=== PATIENT | female | born 1985 | race Asian ===

== ENCOUNTER 2022-06-15 08:29 | Outpatient (CLI) | payer OTHER, SELFPAY ==
[2022-06-15 08:58] LABS: Clue Cells No Clue Cells Seen (None Seen); Trichomonas No Trichomonas Seen (None Seen); Yeast No Yeast Seen (None Seen)
== END 2022-06-15 08:30 | disposition home or self-care (01) ==
PROVIDERS: Visit Provider Registered Nurse
DX: N93.9 Abnormal uterine and vaginal bleeding, unspecified (principal)
CPT/HCPCS: 87210; 87491; 87591

== ENCOUNTER 2022-08-17 09:41 | Day surgery (SDC) | payer OTHER, SELFPAY ==
[2022-08-17] VITALS (13 sets, daily range): BP systolic 110–137; BP diastolic 66–92; PULSE 75–92; RESP 10–16; TEMP 36.3–36.8; O2SAT 98–100; BMI 26.5
[2022-08-17] MEDS: LACTATED RINGERS 1000 ML 1,000 ML 100 ML IV (09:45)
[2022-08-17 10:00] LABS: Ur HCG Qualitative* Negative (Negative)
--- NOTE | 2022-08-17 10:05 | W.ANESCHARGE ---
Anesthesia Charges Start Date/Time Anesthesia Start Date: 08/17/22 Anesthesia Start Time: 10:52 Stop Date/Time Anesthesia Stop Date: 08/17/22 Anesthesia Stop Time: 11:23
[2022-08-17] MEDS: SODIUM CHLORIDE 0.9 % (FLUSH) 10 ML SYRINGE IVF (10:08)
--- NOTE | 2022-08-17 11:19 | W.PM.ENTPROC ---
Procedure Note Date of procedure: 08/17/22 Procedure: Preoperative diagnosis is right cryptic tonsillitis, status post previous left Bucky tonsillectomy Postoperative diagnosis same Procedure right tonsillectomy Under general endotracheal anesthesia patient was prepped and draped usual fashion. The McIvor mouth gag was inserted the tongue retracted forward. The right tonsil was removed with a combination of needlepoint and Coblation cautery. There was minimal to no bleeding. The patient procedure well was taken recovery in satisfactory condition. Blood loss was less than 10 mL. Surgeon: Mac Simpson MD
--- NOTE | 2022-08-17 11:24 | W.ANESCHARGE ---
Anesthesia Charges Start Date/Time Anesthesia Start Date: 08/17/22 Anesthesia Start Time: 10:52 Stop Date/Time Anesthesia Stop Date: 08/17/22 Anesthesia Stop Time: 11:23
[2022-08-17] MEDS: OXYCODONE 1 MG/ML ORAL SOLN 5 MG PO (12:09)
[2022-08-17] MEDS: ACETAMINOPHEN 160 MG/5 ML CUP 320 MG PO (12:09)
[2022-08-17] MEDS: IBUPROFEN 100 MG/5 ML SUSP 200 MG PO (12:09)
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
== END 2022-08-17 13:16 | disposition home or self-care (01) ==
LOC: OR 09:41
PROVIDERS: Visit Provider Otolaryngology
PROC: (CPT 42826; principal; 2022-08-17 11:00)
DX: J35.8 Other chronic diseases of tonsils and adenoids (principal)
CPT/HCPCS: 42826; 170; 81025; 88304; A9270; J0330; J1100; J2250; J2405; J2704; J3010; J7120

== ENCOUNTER 2022-08-24 22:37 | Day surgery (SDC) | payer OTHER, SELFPAY ==
[2022-08-24 22:47] VITALS: BP 133/88; PULSE 90; RESP 16; TEMP 36.6; O2SAT 100; BMI 26.0
[2022-08-24 23:04] LABS: Basophils Absolute Auto 0.02 K/uL (0.00-0.30); Basophils Percent Auto 0.3 % (0.0-3.0); Eosinophils Absolute Auto 0.23 K/uL (0.00-0.50); Eosinophils Percent Auto 3.3 % (0.0-7.0); Hematocrit 36.8 % (33.0-51.0); Hemoglobin* 11.4 gm/dL (12.0-16.0); Immature Granulocytes Abs Auto 0.01 K/uL (0.00-0.30); Immature Granulocytes Pct Auto 0.1 %; Lymphocytes Absolute Auto 2.82 K/uL (0.90-2.90); Lymphocytes Percent Auto 40.1 % (20-44); Mean Corpuscular HGB Conc 31 gm/dL (32-36); Mean Corpuscular Hemoglobin 22 pg (26-34); Mean Corpuscular Volume 71 fL (80-100); Monocytes Percent Auto 7.2 % (0.0-11.0); Neutrophils Absolute Auto 3.45 K/uL (1.7-7.0); Platelet Count* 330 K/uL (140-440); RDW Coefficient of Variation % 14.2 % (11.5-15.5); White Blood Count* 7.04 K/uL (4.50-11.00)
[2022-08-24 23:06] LABS: Slide Review Reflex No
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
[2022-08-24] MEDS: LACTATED RINGERS 1000 ML 1,000 ML IV (23:14)
--- NOTE | 2022-08-24 23:15 | ED.NURSE ---
OR crew at bedside to take over care to SDS
[2022-08-24 23:17] LABS: Chloride* 104 mmol/L (96-114); Potassium* 3.7 mmol/L (3.6-5.1); Sodium* 139 mmol/L (135-149)
[2022-08-24 23:20] LABS: Carbon Dioxide* 24 mmol/L (20-32); Creatinine* 0.7 mg/dL (0.5-1.5); Est. Creatinine Clearance* 87.03; Estimated Glomerular Filt Rate 114 ml/min
[2022-08-24 23:21] LABS: Blood Urea Nitrogen* 13 mg/dL (5-24); Glucose* 120 mg/dL (60-115)
--- NOTE | 2022-08-24 23:38 | P.ENTPROC_ITS ---
Procedure Note Date of procedure: 08/24/22 Procedure: Diagnosis right post tonsillectomy bleeding Postoperative diagnosis same Procedure cautery control right post tonsillectomy bleeding Under general tracheal anesthesia patient was prepped and draped in usual fashion. The McIvor mouth gag was inserted the tongue retracted forward. A clot was noted the right inferior tonsil fossa this was removed brisk bleeding ensued from a vessel near junction of tongue base and tonsillar fossa. This was easily controlled with Coblation cautery. An NG tube was passed 18 Bulgarian was passed into the stomach and anesthesia suction turned on low was used to remove gastric contents. There was only a small amount of blood present. The tonsillar fossa was reinspected no further bleeding was noted. The patient was extubated in the operating room taken recovery in satisfactory condition. Blood loss during procedure was less than 10 mL. There were no complications. Surgeon: Mac Simpson MD
[2022-08-24 23:44] VITALS: BP 136/92; PULSE 110; RESP 12; TEMP 36.4; O2SAT 99
[2022-08-24] MEDS: LACTATED RINGERS 1000 ML 1,000 ML 100 ML IV (23:44)
--- NOTE | 2022-08-24 23:48 | W.ANESCHARGE ---
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
[2022-08-24 23:50] VITALS: BP 122/86; PULSE 91; RESP 16; O2SAT 100
[2022-08-24 23:55] VITALS: BP 126/78; PULSE 87; RESP 16; O2SAT 99
[2022-08-25] VITALS (11 sets, daily range): BP systolic 84–135; BP diastolic 54–85; PULSE 78–89; RESP 15–16; TEMP 36.1; O2SAT 98
--- NOTE | 2022-08-25 00:14 | SUR.PHASEI ---
per elementary vocal music teacher, patient meets pacu discharge criteria. transferring to [facility]
[2022-08-25] MEDS: OXYCODONE 1 MG/ML ORAL SOLN 7 MG PO (01:38)
[2022-08-25] MEDS: IBUPROFEN 100 MG/5 ML SUSP 200 MG PO (01:39)
--- NOTE | 2022-08-25 05:15 | PC.NURSE ---
[id number] Shift Summary? 258 K.P 37 SDS- Post tonsillar bleed? Pt?s vitals stable and soft BPs at baseline. Drowsy upon arrival. Bedside handoff reported giving Benadryl. 5/10 Pain to pt?s throat, teeth, and jaw. Given 7mg liquid oxy and 200mg liquid ibuprofen at 0145. Pt has these meds at home. Declined icepack stated, ?I break out in hives when I am cold?. Pain with swallowing but no aspiration. Voided in BR, SBA x2. Room air. Airway swollen but pink with no discoloration. Brusing to L side of tongue.?No nausea or vomiting. Only tolerated liquids. Pt had no questions regarding DC paperwork. picked her up at [place] to [place] home.?
== END 2022-08-25 05:15 | disposition home or self-care (01) ==
LOC: ED 23:13 → SS 23:15 → MEDSURG 08-25 00:55
PROVIDERS: Emergency Provider Internal Medicine; PCP Physician Assistant Medical; Visit Provider Otolaryngology
PROC: 0C9PXZZ Drainage of Tonsils, External Approach (ICD-10-PCS; CPT 42700; principal; 2022-08-24 23:45)
DX: J95.830 Postprocedural hemorrhage of a respiratory system organ or structure following a respiratory system procedure (principal)
CPT/HCPCS: 42962; 00170; 36415; 80048; 85025; 99140; 99283; A9270; J0330; J1100; J1200; J2405; J2704; J3010; J7120

== ENCOUNTER 2023-03-06 10:37 | Outpatient (CLI) | payer OTHER, SELFPAY | END 2023-03-06 10:38 | disposition home or self-care (01) | LOC: NFLDREF 10:59 | PROVIDERS: PCP Physician Assistant Medical; Visit Provider Registered Nurse | DX: Z01.419 Encounter for gynecological examination (general) (routine) without abnormal findings (principal); Z13.6 Encounter for screening for cardiovascular disorders | CPT/HCPCS: 80061 ==

== ENCOUNTER 2023-03-21 09:31 | Outpatient (CLI) | payer OTHER, SELFPAY ==
--- NOTE | 2023-03-21 09:45 | CRLHL7_ITS ---
For Patients: As a result of the Century Cures Act, medical imaging exams and procedure reports are released immediately into your electronic medical record. You may view this report before your referring provider. If you have questions, please contact your health care provider. INDICATION: Right lower quadrant pelvic pain. TECHNIQUE: Ultrasound pelvis transabdominal and transvaginal for better assessment or to better visualize the endometrium. Real-time sonographic images with spectral and color Doppler imaging of the ovaries were obtained. COMPARISON: None. FINDINGS: Uterus: 7 x 5 x 4 cm. Normal echotexture of the myometrium. No masses. Endometrium: Transvaginal imaging was performed to better evaluate the endometrium. Endometrial thickness measures 11 mm. No sign of endometrial mass or fluid. Right ovary 3 x 2 x 2 cm. Left ovary 3 x 2 x 1 cm. Mildly complex cystic lesion in the right ovary measures 1.5 cm. No other lesions. Normal arterial and venous blood flow is demonstrated in both ovaries. Cul-de-sac: No significant free fluid. IMPRESSION: Small 1.5 cm collapsed follicle or small cyst in the right ovary may be hemorrhagic. No free fluid to suggest cystic rupture. No sign of torsion. Remainder of exam is unremarkable. Dictated by Rashaad Graves MD @ 03/22/2023 11:13:51 AM (Electronically Signed)
== END 2023-03-21 09:32 | disposition home or self-care (01) ==
LOC: US 09:32
PROVIDERS: PCP Physician Assistant Medical; Visit Provider Registered Nurse
DX: R10.2 Pelvic and perineal pain (principal); N83.201 Unspecified ovarian cyst, right side
CPT/HCPCS: 76830; 76856; 93976

== ENCOUNTER 2024-03-02 10:15 | Outpatient (RCR) | payer OTHER, SELFPAY | END 2024-03-02 12:07 | disposition home or self-care (01) | PROVIDERS: PCP Physician Assistant Medical; Visit Provider Physician Assistant Medical | DX: M77.01 Medial epicondylitis, right elbow (principal); Z51.89 Encounter for other specified aftercare | CPT/HCPCS: 97035; 97110; 97140; 97166; X5282 ==

== ENCOUNTER 2025-04-13 19:52 | Emergency (ER) | payer OTHER, SELFPAY ==
--- OUTSIDE RECORDS SUMMARY | 2017-09-09 05:34 | XMS_ITS | Continuity of Care Document ---
Author Organization [facility] Address [address] [address] [place] [address] Phone Care Team Providers Care Canvas Goods Maker Name Role Phone Link Garth LOMBARDO Unavailable Unavailable Allergies, Adverse Reactions, Alerts Substance Reaction Status Criticality No Known Allergies Active No Inform ation Medications Medication Instructions Dosage Effective Dates (start - stop) Status Comments desipramine 10 mg tablet take 1 - 5 tablet by oral route every day at bedtime 10 MG - Active TRAMADOL HCL (unknown strength) take 1 - 2 tablet by oral route every bedtime as needed Not Available - Active desipramine 50 mg tablet take 1 tablet by oral route every day 50 MG - Active Zyrtec 10 mg tablet take 1 tablet by oral route every day - Active VITAMINS (unknown strength) take one tablet orally everyday Not Available - Active pantoprazole 20 mg tablet,delayed release take 1 Tablet by oral route every day as needed 20 MG - Active ondansetron 4 mg disintegrating tablet take 1 - 2 tablet by ORAL route every [address] on top of the tongue where it will dissolve, then swallow 4 MG - Active Procedures Procedure Date Offic/outpt E&m Estab Low-mod 8 Offic/outpt E&m Estab Low-mod 8 Routine Serum Collection Amylase Lipase Offic Cons New/estab Mod Routine Serum Collection Advance Directives Directive Yes / No Effective Date File Name No Information Encounters Encounter Description Practice Location Reason(s) For Visit Diagnoses Date Provider Providers Copied on Encounter [facility], [address] [address], [place], [place], [id number], tel:[phone] [facility] No Information Link MD Liang. [address] [facility], [facility] [address], [place], [place], [id number], . tel:[phone] Offic/outpt E&m Estab Low-mod [facility], [address] [address], [place], [place], [id number], tel:[phone] [facility] GI Symptoms or Concerns (chief complaint) Functional abdominal pain syndrome Link MD Liang. [address] [facility], [facility] [address], [place], [id number], . tel:[phone] Referring Provider: Referral Self, USE FOR SELF REFERRALS. Offic/outpt E&m Estab Low-mod [facility], [address] [address], [place], [place], [id number], tel:[phone] [facility] GI Symptoms or Concerns (chief complaint) Epigastric pain Link MD Liang. [address] [facility], [facility] [address], [place], [place], [id number], . tel:[phone] Referring Provider: Referral Self, USE FOR SELF REFERRALS. Offic Cons New/estab Mod [facility], [address] [address], [place], [place], [id number], tel:[phone] [facility] GI Symptoms or Concerns (chief complaint) Epigastric painConstipati on, unspecified constipation type Jacky Iglesias. [address] [facility], [facility] [address], [place], [place], [id number], . tel:[phone] Family History Family Member Type Diagnosis Age At Onset Father Problem (finding) diabetes mellitus type 2 Son Problem (finding) Alive and well Mother Problem (finding) diabetes mellitus type 2 Father Problem (finding) alcoholism Mother Problem (finding) Thyroid disorder Sister Problem (finding) GERD Payers Payer name Insurance type Covered libertarian ID Authoriza tion(s) No Information Social History Type Description Quantity Date Captured Comments Alcohol Use Details Unknown Caffeine Use Details Unknown Tobacco Use Status Smoking Status No Information Sex Female Chief Complaint And Reason For Visit No Information Reason For Referral Reason For Referral No Information Plan Of Treatment Date Type Action Status Referral Ordered: Gastric Emptying Study (4 Hours) Appointment date/timeframe: 09/06/2017 ordered History Of Present Illness Encounter Date Complaint History Of e nt Illness GI Symptoms or Concerns Martha machuca ents today for a scheduled followup. She was first seen by myself on July 29 for recurrent epigastric pain. She had significant worsening, and presented to the emergency room on July 31 and also August 10. She states that she has episodes of epigastric pain after eating. Often it is worse with fatty, greasy, or spicy foods, however, she can also have symptoms after bland meals. She notes frequent belching. She also has episodes of nausea and vomiting at times. This occurs with the pain, and she usually will vomit up recently ingested food.She has tried to decrease or cut out processed foods, and she has also eliminated eggs from her diet, however, has not noticed an improvement in her symptoms.On August 05, she was started on desipramine 10 mg every evening. She has gradually increased this to 30 mg every evening. GI Symptoms or Concerns Martha ents today for evaluation of abdominal pain. She has a longstanding history of episodic abdominal pain. She states that she will get intermittent episodes of epigastric pain for three to six months, and then the pain will seem to go away for a year or two. Her most recent bout began about two weeks ago. She describes epigastric pain, which begins as a dull ache, and then often progresses to severe pain. It lasts five to seven hours and seems to improve on its own. Sometimes, this seems to be triggered by eating a meal, however, she has not found any specific foods, which cause it. She denies any nausea or vomiting. She has a longstanding history of chronic heartburn, which she takes pantoprazole for. She states that on this medication her symptoms are well controlled. She denies any dysphagia. She notes that her appetite is poor, but she denies any fevers. She is eight weeks , and has been appropriately losing weight. She denies any diarrhea, constipation, o [id number] GI Symptoms or Concerns Ms. Marek abbott is a very pleasant 29 yo female presenting with 6 year history of episodic epigastric pain. She reports the pain is a severe, 8 or 9/10 pain that is a sharp cramp. Eating brings on the pain and nothing but time alleviates the pain. She has tried Levsin, PPI's, nortriptylene and narcotics in the past for the pain with no improvement. She does note that gluten products, bananas and avocados cause the pain and non-bloody emesis after eating. The episodes come in groups where she will have a month with episodes 3-4 times per week and then feel well for multiple months with no pain. She denies significant gas and bloating. She does have some mild constipation on a daily fiber supplement. She will have a stool every few days, very occassional diarrhea. During the intial work up of the pain, it was thought to be gall stone related and she underwent cholecystectomy. The pain continued and she underwent EUS in 2009. More recently, she has had an EGD/colonoscopy within the last month and reports it was normal. Pt reports biopsies from EGD showed reactive gastropathy and negative for celiac. Per pt, Ct ab/p showed right ovarian cyst, otherwise normal. She also possibly had small bowel follow through and US to evaluate celiac artery. All of this was done through [facility]. She is 4 months post- with depression/anxiety symptoms and started Zoloft. She reports an uneventful with vaginal delivery with minor tears. She has decreased sleep and has not been able to exercise regularly with the infant. She previously practiced yoga. She is down to about 4 lbs less than pre- weight of 125lbs. 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 She does drink sodas daily, drinks through a straw and chews gum. Functional Status Date Functional Assessmen t No Information Instructions Date Instruction Additional Infor oracio Increase desipramine to 50 mg every evening. Related to Functional abdominal pain syndrome -Increase fiber supp lement to ensure daily, soft stool. Consider adding daily Miralax if needed. Can also consider Linzess-Obtain record of previous work up-Check thyroid panel-Consider stopping gas producing activities such as gum chewing, drinking with straw, and drinking carbonated beverages-Follow up in 2 months Related to Constipation, unspecified constipation type Assessments Type Assessment Date No Information Patient Care Teams Name Effective Dates (start - stop) Status Members No Information
--- OUTSIDE RECORDS SUMMARY | 2025-04-13 19:54 | XMS_ITS | Clinical Summary ---
Author Organization [facility] Address [address] [place] [id number] Care Team Providers Care [employer] Name Role Phone José Miguel Gonzales MD Primary Care Provider No Ref-Primary, Physician Unavailable [phone] Allergies No known active allergies Medications MedicationSigDispense QuantityRefillsLast FilledStart DateEnd DateStatus Omeprazole Magnesium (PRILOSEC OTC PO) Take by mouth.Active Ibuprofen (ADVIL PO) Take by mouth.Active oxyCODONE-acetaminophen (PERCOCET) 5-325 MG per tablet Take 1-2 tablets by mouth every 6 hours as needed for pain. 20 tablet ctive ondansetron (ZOFRAN ODT) 4 MG disintegrating tablet Take 1-2 tablets by mouth every 6 hours as needed for nausea for 3 days. 20 tablet ctive promethazine (PHENERGAN) 25 MG tablet Take 1 tablet by mouth every 6 hours as needed for nausea. 20 tablet ctive Active Problems ProblemNoted DateDiagnosed DateCARDIOVASCULAR SCREENING; LDL GOAL LESS THAN 160 01/23/2011Genital warts12/27/2010SCUS on Pap smear12/27/2010 Overview (02/14/2011): 12/27/10: ASCUS, + HPV 58. Plan colp. 02/09/11: [facility] - with signs of koilocytosis, not formally called mild dysplasia or PAULA 1. Pt is moving to [place] this weekend- will establish care there. Recommended she print out her colpo bx results to give to her new provider, and make sure she has a pap done in a year. Resolved Problems ProblemNoted DateDiagnosed DateResolved DateNicotine dependence, unspecified, [id number] use cavlkljh76 Family History Medical HistoryRelationCommentsNeurologic DisorderFatherseizuresDiabetesMaternal GrandmotherRelationStatusCommentsFatherMaternal Grandmother Social History Tobacco UseTypesPacks/DayYears UsedDateSmoking Tobacco: FormerCigarettes Smokeless Tobacco: FormerQuit: 01/15/2011 Comments:wellbutrin for a co uple weeks to help stop Alcohol UseStandard Drinks/WeekCommentsYes0 (1 standard drink = 0.6 oz pure alcohol)Adolescent EducationAnswerDate RecordedGetting School Help NeededNot on file3CommentsNoSex and Gender InformationValueDate RecordedSex Assigned at BirthNot on fileLegal LbgRcadqc94/04/2012 4:31 AM CSTGender Identity Not on fileSexual OrientationNot on file Last Filed Vital Signs Vital SignReadingTime TakenCommentsBlood Ggpxaeiq008/8005 5:00 PM CDT Gjuer123009/16/2012 5:00 PM FPCDilzrmuxlyu89.9 ??C (98.5 ??F)09/16/2012 3:09 PM CDTRespiratory Soow842109/16/2012 5:00 PM CDTOxygen Foyrzdpnpv620%09/16/2012 3:09 PM CDTInhaled Oxygen Concentration--Qimwyl44 kg (119 lb)02/09/2011 2:22 PM CDT Qdexee963.9 cm (5' 3.75)01/29/2011 10:23 AM CDTBody Mass Index20.5901/29/2011 10:23 AM CDT Plan of Treatment Not on file Insurance Care Teams Team MemberRelationshipSpecialtyStart DateEnd José Miguel Gonzales MD [facility] [address] [place] [address] PCP - GeneralEmergency Medicine08/30/17 No Ref-Primary, Physician 08/30/17
--- OUTSIDE RECORDS SUMMARY | 2025-04-13 19:54 | XMS_ITS | Clinical Summary ---
Author Organization [employer] [facility] Address [address] [place] [address] Care Team Providers Care Fudger Name Role Phone Whit Harmon Primary Care Provider Allergies Active AllergyReactionsCriticalityNoted DateCommentsAvocadoOther - Describe In Comment Field02/22/2021ananaStomach Upset02/22/20214494YcxymndbishOmtdhhd27/19/2018 Unlisted Allergen (Include Detail In Comments)Hives08/07/2022 Needs to stay warm otherwise she breaks into hives Medications MedicationSigDispense QuantityRefillsLast FilledStart DateEnd DateStatus cetirizine (ZYRTEC) 10 mg tablet Take 1 tablet by mouth once daily.ctive buPROPion 150 mg Extended-Release tablet Indications:Depression, major, single episode, moderate (HC)Take 1 Tablet (150 mg) by mouth once daily in the morning. 90 Tablet 5Active lansoprazole 30 mg capsule Indications:Chronic GERDTake 1 Capsule (30 mg) by mouth once daily before a meal. 90 Capsule 5Active levonorgestrel-ethinyl estrad (0.15-30 mg-mcg) 0.15-0.03 mg tablet Indications:Menorrhagia with regular cycleTake 1 Tablet by mouth once daily. 84 Tablet 5Active HYDROcodone-acetaminophen (5-325 mg/tablet) Indications:Migraine syndromeTake 1 Tablet by mouth 3 times daily if needed for Pain. Max acetaminophen dose: 4000 mg in 24 hrs. 21 Tablet 5Active fremanezumab-vfrm (AJOVY) 225 mg/1.5 mL subcutaneous pen Indications:Chronic migraine w/o aura, not intractable, w stat migrInject 1.5 mL (225 mg) subcutaneous every 4 weeks. Do not shake. Administer in abdomen, thigh, or upper arm. 1 Each 5Active naratriptan 2.5 mg tablet Indications:Chronic migraine w/o aura, not intractable, w stat migrTake 1 Tablet (2.5 mg) by mouth 2 times daily if needed for Migraine. Doses should be spaced apart by at least 4 hours 9 Tablet 5Active diclofenac immediate release (CATAFLAM) 50 mg tablet Indications:Chronic migraine w/o aura, not intractable, w stat migrTake 1 Tablet (50 mg) by mouth 2 times daily if needed (migraine). 60 Tablet 5Active dihydroergotamine (MIGRANAL NASAL) 0.5 mg/pump act. (4 mg/mL) nasal spray Indications:Chronic migraine w/o aura, not intractable, w stat migr1 spray into each nostril followed in 15 minutes by 1 additional spray into each nostril 8 mL 5Active Lactobacillus acidophilus (Probiotic) 10 billion cell cap 3Active ondansetron (ZOFRAN ODT) [address] 4 mg on the tongue every 8 hours if needed for Nausea/Vomiting.03/02/2025 Active SEMAGLUTIDE (WEIGHT LOSS) SUBQ 4Active melatonin 5 mg capsule Take 5 mg by mouth at bedtime if needed for Sleep.Active magnesium glycinate 120 mg cap Indications:hypomagnesemiaTake 2 Capsules by mouth once daily.Active adapalene (DIFFERIN) 0.1 % cream Indications:Dermatosis papulosa nigra,MiliaApply topically to affected area(s) at bedtime. 45 g Discontinued(*Patient states no longer taking) EPINEPHrine (EPIPEN) 0.3 mg/0.3 mL auto-injector Indications:Idiopathic urticariaInject 0.3 mg intramuscular one time if needed for Allergic Reaction. 2 Each Discontinued(*Patient states no longer taking) ALPRAZolam (XANAX) 0.25 mg tablet Indications:Anxiety,Fear of flyingTake 1-2 tabs as needed for air travel. 15 Tablet /Discontinued(*Patient states no longer taking) ketorolac (TORADOL) 10 mg tablet Indications:Migraine syndromeTake 1 tab three times daily as needed for migraine headache. Maximum of 40 mg in 24 hours. 15 Tablet /Discontinued(*Med complete/Regimen complete/Level of care change) SUMAtriptan (IMITREX) 100 mg tablet Indications:Migraine syndromeTake 1 Tablet (100 mg) by mouth every 2 hours if needed for Migraine. Give at minimum 2hrs apart. Max Dose: 200mg per 24hrs. 10 Tablet Discontinued(*Med ineffective) amitriptyline 25 mg tablet Indications:Migraine syndromeTake 1 Tablet (25 mg) by mouth at bedtime. 90 Tablet Discontinued(*Allergic/Adverse Rxn/Side Effects) yxjoukscplcsp-jtrpaehr-npvmmvhpgp (FIORICET) 325-40-50 mg Indications:Migraine syndromeTake 1 Tablet by mouth every 4 hours if needed for Migraine. Max 6 doses per day. Max acetaminophendose 4000mg in 24 hrs. 20 Tablet Discontinued(*Med complete/Regimen complete/Level of care change) gabapentin (NEURONTIN) 300 mg capsule Indications:Migraine syndromeTake 1 Capsule (300 mg) by mouth two times daily. 60 Capsule Discontinued(*Med ineffective) suzetrigine (Journavx) 50 mg tablet Indications:Migraine syndromeFor first dose, take 2 tablets (100 mg) by mouth on an empty stomach. Then, take 1 tablet (50 mg) every 12 hours, with or without food. 20 Tablet Discontinued(*Med ineffective) predniSONE (DELTASONE) 20 mg tablet Indications:Status migrainosus2 tablets every morning for 3 days then 1 tablet every morning for 2 days then 1/2 tablet for 1 morning 9 Tablet /03/2025Discontinued(*Med complete/Regimen complete/Level of care change) naratriptan 2.5 mg tablet Indications:Status migrainosusTake one tablet twice a day for 6 days 12 Tablet Discontinued(Reorder (E-cancel not sent))Hospital, Clinic, or Other Facility Administered MedicationOrdered DoseRouteFrequencyStart DateEnd DateStatus BUPivacaine PF 0.5 % (5 mg/mL) injection 50 mg Indications:New daily persistent headache,Chronic migraine w/o aura, not intractable, w stat migr50 mgINFILTRATIONONE TIME/Ended Active Problems ProblemNoted DateDiagnosed DateCIN III (cervical intraepithelial neoplasia III) 10/11/2020 Overview (10/14/2024): 12/2010 ASCUS/HPV+ 01/2011 [place] Focal koilocytosis 07/2015 NIL 10/2016 LSIL/HPV+ 06/2017 ASCUS/HPV+ 08/2017 [place]: Biopsy PAULA 1 09/2020 HSIL/AGC (endocervical) 12/2020 [place]: Biopsy and ECC PAULA 2-3 02/2021 [facility]: PAULA 2-3, positive margins, ECC Benign 03/2021 [facility]: Benign 11/2021 NIL/HPV negative 02/2023 NIL/HPV negative 09/2024 NIL/HPV negative. Plan: HPV-based testing due 09/2027. Panic xhqxphf6009/01/2019GAD (generalized anxiety disorder)09/01/2019Recurrent major depressive disorder, in full ntwbbiqnp13/12/2020 Resolved Problems ProblemNoted DateDiagnosed DateResolved DateMPP Supervision of high-risk ecbjxjsli10 Overview (05/09/2017): MPP TESTING ONLY : Mike It's a Boy! NEXT VISIT ALERTS: FUTURE APPOINTMENTS: Testing: Growth: PRIMARY DIAGNOSIS: 31 y.o. Estimated Date of Delivery: 06/07/17 : IUGR Maternal: 2016 Term Vaginal Delivery - GDM - diet controlled/PPD; Baby with pulmonary valve stenosis History of blood transfusion Antibody positive: Anti Ayanna, Anti Leb LAST GROWTH: 05/10/17 36w0d 05/03/17 35w0d EFW 2063 grams, percentile: 5 01/11/17 19w0d EFW 249 grams, percentile: 25 10/22/16 7w0d Dating consistent with LMP ECHO: 05/10/17: TESTING PLANS: REFERRING PHYSICIAN/PHONE/LAST UPDATE: Ivanna Li MD [facility] Primary MD approves scheduling of recommended ultrasounds/testing: Unknown SPECIALISTS/PHONE: GISELLE: CARE COORDINATION: Della RogersRN/Roberta Ortega RN/Roxanne Marie RN/Suzette Evans RN [phone] PERTINENT LABS: B Positive Antibody Positive 10/22/16: HgbA1c: 5.2 11/10/16: GCT: 142 01/11/17: GCT: 142 01/18/17: GTT: 88, 194, 154, 58 03/20/17: GTT: 83, 198, 155, 97 PERTINENT MEDS: PLAN OF CARE: Chronic abdominal painEpigastric abdominal pain11/10/2014 09/08/2021 Overview (08/15/2015): EGD 07/2015 mild reflux Encounters DateTypeDepartmentCare OentTwxpmngzdcn74/22/2025 3:00 PM CSTOffice Visit [facility] [address] [place] [address] Demar Ortega MD Consult (I started having a bunch of migraines last year, then as of December of last it went from one last migraine to a constant headache.)04/09/2025 4:00 PM CSTOffice Visit [facility] [place] [address] [place] [phone] Alex Valentin MD Procedure (TPI)04/09/20251083Qzseoz46/17/9260Svmlmq04/15/2025Orders Only [facility] Neurology [address] [place] [phone] Alex Valentin MD <No scans attached>03/31/2025Results Follow-Up [facility] Neurology [place] [address] [facility] [address] [place] [address] Alex Valentin MD 03/30/2025 8:[address] [address] [place] [address] Lab, [place] Lab03/30/20250734Ssgdhf80/04/6511Fuavky70/01/2025Telephone [facility] [address] [facility] [address] [place] [phone] Alex Valentin MD Prior Authorization (fremanezumab-vfrm (AJOVY) 225 mg/1.5 mL subcutaneous pen - APPROVED 02/20/2025- 03/22/2026)03/16/2025 3:00 PM CSTOffice Visit [facility] [place] [address] [facility] [address] [place] [address] Alex Valentin MD Consult; Qdyxxemg07/25/9710Bbftae93/11/2025 11:[address] [address] [place] [address] 03/01/2025Travelfrom Last 3 Months Immunizations ImmunizationAdministration DatesNext DueCOVID-19 vaccine (Moderna 100mcg/0.5mL) MD ANKITV09/20/2020,08/22/2020OVID-19 vaccine (Pfizer-BioNTech 30mcg/0.3mL) MD ANKITV105/29/2020Influenza, [employer]BS20205/06/2022,03/28/2021,02/17/2020,01/30/2019, 04/05/2018,01/11/2017,02/10/2016,02/16/2015Influenza, Intradermal Inactivated 03/10/2015Influenza,CCIIV4 PRESERV FREE12/16/2021Tdap106/04/2016,05/26/2015 Family History Medical HistoryRelationNameCommentsAlcoholismFatherTheDiabetesFatherTheDiabetes type IIFatherTheLiver cancerFatherTheCancer-colonMaternal AuntDiabetesMaternal GrandmotherTinaDiabetesMotherHangDiabetes type IIMotherHangHeart attackMother HangNSTEMIThyroid DiseaseMotherHangAnesthesia Malignant HyperthermiaNo Family HistoryAnesthesia ProblemNo Family HistoryRelationNameStatusCommentsFatherThe AliveMaternal AuntMaternal GrandmotherTinaAliveMotherHangAliveSister 1Alive Sister 2AliveSister 3Alive Social History Tobacco UseTypesPacks/DayYears UsedDateSmoking Tobacco: FormerCigarettes0.3Quit: 09/2016Passive Smoke Exposure: PastSmokeless Tobacco: Never Tobacco Cessation:Counseling Given: Not Answered Alcohol UseStandard Drinks/WeekCommentsYes0 (1 standard drink = 0.6 oz pure alcohol)1-2 drinks per weekPHQ-2AnswerDate RecordedPHQ-2 TOTAL [id number] Social ConnectionsAnswerDate RecordedDo you often feel lonely or isolated from those around you?lcohol UseAnswerDate RecordedHow often do you have a drink containing alcohol?How many drinks containing alcohol do you have on a typical day when you are drinking?How often do you have five or more drinks on one occasion?Financial Resource StrainAnswer Date RecordedDifficulty of Paying Living Lznfojgz807/14/2025Difficulty of Paying Living ExpensesNot on file07/03/2024Food InsecurityAnswerDate RecordedDo you worry your food will run out before you are able to buy more? Transportation NeedsAnswerDate RecordedDoes lack of transportation keep you from medical appointments?Does lack of transportation keep you from work, meetings or getting things that you need?Housing StabilityAnswerDate RecordedWhat is your housing situation today?UtilitiesAnswerDate RecordedDo you have trouble paying for utilities (for example, heat, electricity, water, phone)?CommentsNoSex and Gender InformationValueDate RecordedSex Assigned at BirthNot on fileLegal SexFemale 05/05/2012 7:15 AM CSTGender IdentityNot on fileSexual OrientationNot on file Obstetrics History GravidaParaTermPretermABIABSABEctopicMultipleLivingLive Qjelcz40052VcoeRdawourUK Total LaborLabor/2nd/4rnHekqtpAuzEdheGvxnRHTStyE7L9ZunrVlps27/29/1100Rity04w7t 2.92 kg (6 lb 7 oz)MVagEpiduralLivingDelivery [facility] Comments:Gestational Diabetes - diet controlled; Baby diagnosed with pulmonary valve stenosisGravida Last Filed Vital Signs Vital SignReadingTime TakenCommentsBlood Kjeqenaf28/6504/12/2025 2:52 PM INJECTION MOLDING MACHINE OPERATOR Ypanh585304/12/2025 2:52 PM DZNWhpqvvxstwg95.6 ??C (97.9 ??F)04/12/2025 2:52 PM CSTRespiratory Wgrz7336 2:52 PM CSTOxygen Bylsduygmy754%04/12/2025 2:52 PM CSTInhaled Oxygen Concentration--Vcaejd46.8 kg (123 lb)04/12/2025 2:52 PM INJECTION MOLDING MACHINE OPERATOR Zcjwfu588.5 cm (5' 2)04/12/2025 2:52 PM CSTBody Mass Index22. 2:52 PM INJECTION MOLDING MACHINE OPERATOR Plan of Treatment DateTypeDepartmentCare Team (Latest Contact Info)Xmwqfebemtc25/12/2026 11:00 AM CSTOffice Visit [facility] [place] [facility] [address] [place] [phone] Alex Valentin MD [address] [place], [place] [phone] Health MaintenanceDue DateLast DoneCommentsHIV for age 15-Hepatitis C screening for age 18-Hepatitis B series for 19+ (1 of 3 - 19+ 3- dose series)11/14/2003HPV series for age 9-45 (1 - 3-dose SCDM series)11/14/2011 Mammogram for age 40-75011/13/2024OVID-19 vaccine series (2024- season) /, 02/04/2022, 03/28/2021, Additional history existsInfluenza Vaccine (#1)/, 12/16/2021, 03/28/2021, Additional history existsDepression screening for age 12+, 08/12/2024, 04/20/2023, Additional history existsBMI (ht and wt on same day) for age 18+ , 09/28/2024, 06/12/2023, Additional history existsTetanus jlygetc30/, 05/26/2015Pap test for age 21-09/28/2024, 09/28/2024, 03/06/2023, Additional history existsPneumococcal series for age 6-49Aged OutNo longer eligible based on patient's age to complete this topic Procedures Procedure NamePriorityDate/TimeAssociated DiagnosisCommentsNERVE BLOCKRoutine 04/09/2025 3:58 PM INJECTION MOLDING MACHINE OPERATOR New daily persistent headache Status migrainosus Chronic migraine w/o aura, not intractable, w stat migr CBC WITH AUTO PTLRSRFEQWPANoolsan64/09/2025 8:00 AM INJECTION MOLDING MACHINE OPERATOR New daily persistent headache VITAMIN D 25 (DEFICIENCY)Wbwceur6503/30/2025 8:00 AM INJECTION MOLDING MACHINE OPERATOR New daily persistent headache VITAMIN C45Psfkqoa80/09/2025 8:00 AM INJECTION MOLDING MACHINE OPERATOR New daily persistent headache FOLIC CTOIAvogwzg60/09/2025 8:00 AM INJECTION MOLDING MACHINE OPERATOR New daily persistent headache TTCOZFHWKNmhufsw53/09/2025 8:00 AM INJECTION MOLDING MACHINE OPERATOR New daily persistent headache CBC WITH AUTO KUDHVQGODWCVDusszog53/09/2025 8:00 AM INJECTION MOLDING MACHINE OPERATOR New daily persistent headache COMP METABOLIC YYXPAFwmbjws97/09/2025 8:00 AM INJECTION MOLDING MACHINE OPERATOR New daily persistent headache TSH WITH PSTWBVRrdqgxk50/09/2025 8:00 AM INJECTION MOLDING MACHINE OPERATOR New daily persistent headache MR HEAD BRAIN TBWEqiirnm89/11/2025 12:25 PM INJECTION MOLDING MACHINE OPERATOR Migraine syndrome HPV HIGH DPWVAmyhihz39/09/2025 1:27 PM CDT Screening for cervical cancer from Last 3 Months or Most Recently Relevant to Health Maintenance Results * (ABNORMAL) CBC WITH AUTO DIFFERENTIAL (03/30/2025 8:00 AM INJECTION MOLDING MACHINE OPERATOR)ComponentValue Ref RangeTest MethodAnalysis TimePerformed AtPathologist SignatureWHITE BLOOD CELL COUNT7.63.8 - 10.8 Thousand/uL03/31/2025 4:56 AM CSTQUEST DIAGNOSTICSRED BLOOD CELL COUNT5.29(H)3.80 - 5.10 Million/uL03/31/2025 4:56 AM CSTQUEST FVKWMSSYXNKJSJVTPXWXU21.011.7 - 15.5 g/dL03/31/2025 4:56 AM CSTQUEST DXOHNYPCEAUEBUPPTSNXX64.235.9 - 46.0 %03/31/2025 4:56 AM CSTQUEST DIAGNOSTICS MCV76.0(L)81.4 - 101.7 fL03/31/2025 4:56 AM CSTQUEST XHBJIZFWRQGAFS64.7(L)27.0 - 33.0 pg03/31/2025 4:56 AM CSTQUEST QVSDAIZLHVIIQCN66.9(L)31.6 - 35.4 g/dL 03/31/2025 4:56 AM CSTQUEST GFXIVJFSKHHMAS14.411.0 - 15.0 %03/31/2025 4:56 AM CSTQUEST DIAGNOSTICSPLATELET TVWIW861937 - 400 Thousand/uL03/31/2025 4:56 AM CSTQUEST VUVVZCJJPZEVVN26.8(H)7.5 - 12.5 fL03/31/2025 4:56 AM CSTQUEST KTMVBDUIWISIJLUGZVCMBY82.1%03/31/2025 4:56 AM CSTQUEST DIAGNOSTICSLYMPHOCYTES 36.3%03/31/2025 4:56 AM CSTQUEST DIAGNOSTICSMONOCYTES5.5%03/31/2025 4:56 AM CSTQUEST DIAGNOSTICSEOSINOPHILS0.8%03/31/2025 4:56 AM [facility] BASOPHILS0.3%03/31/2025 4:56 AM CSTQUEST DIAGNOSTICSABSOLUTE RNTHYXHZJQC0681 1500 - 7800 cells/uL03/31/2025 4:56 AM CSTQUEST DIAGNOSTICSABSOLUTE FHYJZYBZSUI3234085 - 3900 cells/uL03/31/2025 4:56 AM [facility] ABSOLUTE TNRRYHIBF640262 - 950 cells/uL03/31/2025 4:56 AM [facility] ABSOLUTE UTNNQTBELXZ5691 - 500 cells/uL03/31/2025 4:56 AM [facility] ABSOLUTE PCKGXHFYU653 - 200 cells/uL03/31/2025 4:56 AM [facility] Specimen (Source)Anatomical Location / LateralityCollection Method / Volume Collection TimeReceived TimeBloodBLOOD SPECIMEN / UnknownQuest Collect / Zhgpaxb1803/30/2025 8:00 AM CST03/30/2025 8:00 AM INJECTION MOLDING MACHINE OPERATOR Narrative Authorizing ProviderResult TypeResult StatusDavid Marc Valentin MDHEMATOLOGY Final ResultPerforming OrganizationAddressCity/State/ZIP CodePhone Number [facility] [place] [address] [address], * TSH WITH REFLEX (03/30/2025 8:00 AM INJECTION MOLDING MACHINE OPERATOR)ComponentValueRef RangeTest Method Analysis TimePerformed AtPathologist SignatureTSH W/REFLEX TO FT41.74mIU/L 03/31/2025 5:05 AM CSTQUEST DIAGNOSTICSComment: ?Reference Range ? > or = 20 Years 0.40-4.50 ? Ranges ?First trimester ?0.26-2.66 ?Second trimester ?? 0.55-2.73 ?Third trimester ?0.43-2.91 Specimen (Source)Anatomical Location / LateralityCollection Method / Volume Collection TimeReceived TimeBloodBLOOD SPECIMEN / UnknownQuest Collect / Unknown 03/30/2025 8:00 AM CST03/30/2025 8:00 AM INJECTION MOLDING MACHINE OPERATOR Narrative Authorizing ProviderResult TypeResult StatusDaviosito Valentin MDCHEMISTRYFinal ResultPerforming OrganizationAddressCity/State/ZIP CodePhone Number [place] [address] [address], * (ABNORMAL) VITAMIN D 25 (DEFICIENCY) (03/30/2025 8:00 AM INJECTION MOLDING MACHINE OPERATOR)ComponentValueRef RangeTest MethodAnalysis TimePerformed AtPathologist SignatureVITAMIN D,25-OH,TOTAL,IA23(L)30 - 100 ng/mL03/31/2025 5:18 AM CST[facility] Comment: Vitamin D Status ? 25-OH Vitamin D: Deficiency: <20 ng/mL Insufficiency: ? 20 - 29 ng/mL Optimal: > or = 30 ng/mL For 25-OH Vitamin D testing on patients on D2-supplementation and patients for whom quantitation of D2 and D3 fractions is required, the QuestAssureD(TM) 25-OH VIT D, (D2,D3), LC/MS/MS is recommended: order code 06369 (patients >2yrs). See Note 1 Note 1 For additional information, please refer to http://education.Dinnr.NextDigest/faq/JHV708 (This link is being provided for informational/ educational purposes only.) Specimen (Source)Anatomical Location / LateralityCollection Method / Volume Collection TimeReceived TimeBloodBLOOD SPECIMEN / UnknownQuest Collect / Unknown 03/30/2025 8:00 AM CST03/30/2025 8:00 AM INJECTION MOLDING MACHINE OPERATOR Narrative Authorizing ProviderResult TypeResult StatusDakathleen Valentin MDSEND OUTSFinal ResultPerforming OrganizationAddressCity/State/ZIP CodePhone Number [place] [address] [address], * MAGNESIUM (03/30/2025 8:00 AM INJECTION MOLDING MACHINE OPERATOR)ComponentValueRef RangeTest MethodAnalysis TimePerformed AtPathologist SignatureMAGNESIUM2.21.5 - 2.5 mg/dL03/31/2025 7:39 AM CSTQUEST DIAGNOSTICSSpecimen (Source)Anatomical Location / Laterality Collection Method / VolumeCollection TimeReceived TimeBloodBLOOD SPECIMEN / UnknownQuest Collect / Nbeyegd9703/30/2025 8:00 AM CST03/30/2025 8:00 AM INJECTION MOLDING MACHINE OPERATOR Narrative Authorizing ProviderResult TypeResult StatusDavid Marc Valentin [facility] COALGATEHEMISTRYFinal ResultPerforming [facility] HealthcareAddP[facility] CodePhone Number [place] [address] [address], * FOLIC ACID (03/30/2025 8:00 AM INJECTION MOLDING MACHINE OPERATOR)ComponentValueRef RangeTest MethodAnalysis TimePerformed AtPathologist SignatureFOLATE, SERUM14.7ng/mL03/31/2025 5:05 AM CSTQUEST DIAGNOSTICSComment: ? Reference Range Low: <3.4 ? Borderline: ?3.4-5.4 Normal: >5.4 Specimen (Source)Anatomical Location / LateralityCollection Method / Volume Collection TimeReceived TimeBloodBLOOD SPECIMEN / UnknownQuest Collect / Unknown 03/30/2025 8:00 AM CST03/30/2025 8:00 AM INJECTION MOLDING MACHINE OPERATOR Narrative Authorizing ProviderResult TypeResult StatusDavid Marc Valentin [facility] COALGATEHEMISTRYFinal ResultPerforming OrganizationAddPenn State [facility] CodePhone Number [facility] [address] [address], * VITAMIN B12 (03/30/2025 8:00 AM INJECTION MOLDING MACHINE OPERATOR)ComponentValueRef RangeTest MethodAnalysis TimePerformed AtPathologist SignatureVITAMIN [id number] - 1100 pg/mL03/31/2025 5:05 AM CSTQUEST DIAGNOSTICSSpecimen (Source)Anatomical Location / Laterality Collection Method / VolumeCollection TimeReceived TimeBloodBLOOD SPECIMEN / UnknownQuest Collect / Alwqszc1203/30/2025 8:00 AM CST03/30/2025 8:00 AM INJECTION MOLDING MACHINE OPERATOR Narrative Authorizing ProviderResult TypeResult StatusDavid Marc Barbie MDCHEMISTRYFinal ResultPerforming OrganizationAddressCity/State/ZIP CodePhone Number [facility] [address] [place] [address], * COMP METABOLIC PANEL (03/30/2025 8:00 AM INJECTION MOLDING MACHINE OPERATOR)ComponentValueRef RangeTest MethodAnalysis TimePerformed AtPathologist WrscyzbpnMLUIBO162487 - 146 mmol/L 03/31/2025 7:39 AM CSTQUEST DIAGNOSTICSPOTASSIUM4.43.5 - 5.3 mmol/L106/01/2024 7:39 AM CSTQUEST TFEPCBFBRMGWJNTESIO31083 - 110 mmol/L106/01/2024 7:39 AM INJECTION MOLDING MACHINE OPERATOR [facility] DYPQOCS2505 - 32 mmol/L106/01/2024 7:39 AM CSTQUEST FVKBIXKBQZAXXALEYK6422 - 99 mg/dL03/31/2025 7:39 AM [facility] Comment: ? Fasting reference interval CALCIUM9.48.6 - 10.2 mg/dL03/31/2025 7:39 AM CSTQUEST DIAGNOSTICSCREATININE0.74 0.50 - 0.99 mg/dL03/31/2025 7:39 AM CSTQUEST DIAGNOSTICSBUN/CREATININE RATIOSEE NOTE: (calc)03/31/2025 7:39 AM CSTQUEST DIAGNOSTICSComment: ?? Not Reported: BUN and Creatinine are within ?? reference range. ? OWGR916> OR = 60 mL/min/1.29p69803/31/2025 7:39 AM CSTQUEST DIAGNOSTICSALBUMIN4.1 3.6 - 5.1 g/dL03/31/2025 7:39 AM CSTQUEST DIAGNOSTICSPROTEIN, TOTAL6.76.1 - 8.1 g/dL03/31/2025 7:39 AM CSTQUEST DIAGNOSTICSBILIRUBIN, TOTAL0.40.2 - 1.2 mg/dL 03/31/2025 7:39 AM CSTQUEST DIAGNOSTICSALKALINE BNUZPQAUUJV8004 - 125 U/L 03/31/2025 7:39 AM CSTQUEST OURUPDUJCMVTVV795 - 29 U/L106/01/2024 7:39 AM INJECTION MOLDING MACHINE OPERATOR [facility] PQWQGAYESFICDL4295 - 30 U/L106/01/2024 7:39 AM CSTQUEST DIAGNOSTICSUREA NITROGEN (BUN)117 - 25 mg/dL03/31/2025 7:39 AM CSTQUEST DIAGNOSTICSGLOBULIN2.6 1.9 - 3.7 g/dL (calc)03/31/2025 7:39 AM CSTQUEST DIAGNOSTICSALBUMIN/GLOBULIN RATIO1.61.0 - 2.5 (calc)03/31/2025 7:39 AM CSTQUEST DIAGNOSTICSSpecimen (Source) Anatomical Location / LateralityCollection Method / VolumeCollection Time Received TimeBloodBLOOD SPECIMEN / UnknownQuest Collect / Ihxmzzl7003/30/2025 8:00 AM CST03/30/2025 8:00 AM INJECTION MOLDING MACHINE OPERATOR Narrative Authorizing ProviderResult TypeResult StatusDavid Marc Valentin MDCHEMISTRYFinal ResultPerforming OrganizationAddressCity/State/ZIP CodePhone Number [facility] [place] [address] [place] [address], * MR HEAD BRAIN WWO (03/02/2025 12:25 PM INJECTION MOLDING MACHINE OPERATOR)Anatomical RegionLateralityModality BRAIN, HEADMagnetic ResonanceSpecimen (Source)Anatomical Location / Laterality Collection Method / VolumeCollection TimeReceived Time03/02/2025 9:48 PM INJECTION MOLDING MACHINE OPERATOR Addenda Addendum by Panda Magaña MD on 03/20/2025 3:58 PM INJECTION MOLDING MACHINE OPERATOR INDICATION: Migraine headaches. TECHNIQUE: Multisequence multiplanar MRI of the brain prior to and following administration of 11 cc Clariscan gadolinium-based intravenous contrast. COMPARISON: None available. FINDINGS: No evidence of acute ischemia. A dural-based enhancing lesion along the high left frontal convexity measures 10 x 11 x 8 mm (series 13, image 140). There is likely invasion of the adjacent superior sagittal sinus. No adjacent parenchymal signal abnormality is identified. The brain parenchyma is normal in signal intensity. The ventricles are normal in size. Flow voids of the larger intracranial arteries are preserved. Normal calvarial bone marrow signal intensity. Unremarkable orbits. Mild mucosal thickening within the ethmoid sinuses. IMPRESSION: 1. No acute intracranial abnormality. 2. 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 Dictated by Eran Magaña MD @ 03/02/2025 9:48:08 PM ----- ADDENDUM ----- Addendum : In addition to the initially reported findings, there is focal signal abnormality within left sphenoid sinus most consistent with nonspecific inflammatory change. The adjacent cavernous sinus is not enlarged with a normal concave margin. Dictated by Eran Magaña MD @ Mar 20 2025 ??3:57PM (Electronically Signed) Impressions 03/02/2025 9:48 PM INJECTION MOLDING MACHINE OPERATOR 1. No acute intracranial abnormality. 2. 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 Dictated by Eran Magaña MD @ 03/02/2025 9:48:08 PM (Electronically Signed) Narrative 03/02/2025 9:48 PM INJECTION MOLDING MACHINE OPERATOR For Patients: As a result of the Cures Act, medical imaging exams and procedure reports are released immediately into your electronic medical record. You may view this report before your referring provider. If you have questions, please contact your health care provider. INDICATION: Migraine headaches. TECHNIQUE: Multisequence multiplanar MRI of the brain prior to and following administration of 11 cc Clariscangadolinium-based intravenous contrast. COMPARISON: None available. FINDINGS: No evidence of acute ischemia. A dural-based enhancing lesion along the high left frontal convexitymeasures 10 x 11 x 8 mm (series 13, image 140). There is likely invasion of the adjacent superior sagittal sinus. No adjacent parenchymal signal abnormality is identified. The brain parenchyma is normal in signal intensity. The ventricles are normal in size. Flow voids of the larger intracranial arteries are preserved. Normal calvarial bone marrow signal intensity. Unremarkable orbits. Mild mucosal thickening within the ethmoid sinuses. Procedure Note Panda Magaña MD - 03/02/2025 For Patients: As a result of the Cures Act, medical imagingexams and procedure reports are released immediately into your electronicmedical record. You may view this report before your referring provider.If you have questions, please contact your health care provider. INDICATION: Migraine headaches. TECHNIQUE: Multisequence multiplanar MRI of the brain prior to and followingadministration of 11 cc Clariscan gadolinium-based intravenous contrast. COMPARISON: None available. FINDINGS: No evidence of acute ischemia. A dural-based enhancing lesion along thehigh left frontal convexity measures 10 x 11 x 8 mm (series 13, [id number]). There is likely invasion of the adjacent superior sagittal sinus. Noadjacent parenchymal signal abnormality is identified. The brainparenchyma is normal in signal intensity. The ventricles are normal in size. Flow voids of the larger intracranialarteries are preserved. Normal calvarial bone marrow signal intensity. Unremarkable orbits. Mildmucosal thickening within the ethmoid sinuses. IMPRESSION: 1. No acute intracranial abnormality. 2. 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 Dictated by Eran Magaña MD @ 03/02/2025 9:48:08 PM (Electronically Signed) Authorizing ProviderResult TypeResult StatusBridgejelena Harmon PAMREdited Result - Final * HPV HIGH RISK (09/28/2024 1:27 PM CDT)ComponentValueRef RangeTest Method Analysis TimePerformed AtPathologist SignatureTYPE 16NegativeNegative 10/02/2024 11:19 AM [facility]ATORYTYPE 18 WnleqquyVndyeovr68/13/2025 11:19 AM [facility] LAB[facility]ATORYOTHER HIGH RISK CONDUUsqqagzqQdxyukgg36/13/2025 11:19 AM [facility] LABORATORYSpecimen (Source)Anatomical Location / LateralityCollection Method / VolumeCollection TimeReceived TimeOther (Cervical)Non-Blood / [place]9209/28/2024 1:27 PM CDT09/29/2024 11:57 AM CDT Narrative [facility] - 10/02/2024 11:19 AM CDT HPV types 16, 18, 31, 33, 35, 39, 45, 51, 52, 56, 58, 59, 66 and 68 DNA were undetectable or below the pre-set threshold. Methodology: Yakimbias 4800 HPV Test Authorizing ProviderResult TypeResult StatusBridgejelena Harmon PAMICROBIOLOGY Final ResultPerforming OrganizationAddressCity/State/ZIP CodePhone Number [facility] [address] [place] [address], [place] from Last 3 Months or Most Recently Relevant to Health Maintenance Insurance Care Teams Team MemberRelationshipSpecialtyStart DateEnd Date Whit Harmon PA [address] [place] [address] PCP - GeneralPhysician Assistant10/04/17
[2025-04-13 20:07] VITALS: BP 123/77; PULSE 92; RESP 18; TEMP 36.6; O2SAT 100; BMI 22.3
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
--- OUTSIDE RECORDS SUMMARY | 2025-04-13 21:45 | XMS_ITS | Clinical Summary ---
Author Organization [facility] Address [address] [place] [address] Care Team Providers Care Marker Assembler Name Role Phone No, Pcp DUTY ENGINEER Primary Care Provider Unavailabl e Social History Tobacco UseTypesPacks/DayYears UsedDateSmoking Tobacco: Never Assessed CommentsUnknownSex and Gender InformationValueDate RecordedSex Assigned at Not on fileLegal NkaMuszdi38/15/2021 9:37 AM EDTGender IdentityNot on fileSexual OrientationNot on file Plan of Treatment Not on file Medical Devices Not on file Insurance Care Teams Team MemberRelationshipSpecialtyStart DateEnd Date No, Pcp, DUTY ENGINEER N/A Do not use [facility] - [facility]
[2025-04-13 22:06] VITALS: BP 118/74; PULSE 84; RESP 18; TEMP 36.6; O2SAT 100
== END 2025-04-13 22:07 | disposition home or self-care (01) ==
LOC: ED 21:44
PROVIDERS: Emergency Provider Emergency Medicine Emergency Medical Services; PCP Physician Assistant Medical
DX: S61.011A Laceration without foreign body of right thumb without damage to nail, initial encounter (principal); W26.0XXA Contact with knife, initial encounter
CPT/HCPCS: 12001; 99282; 99284